=== PATIENT | male | born 1985 | race Caucasian/White ===

== ENCOUNTER 2017-04-09 23:19 | Emergency (ER) | payer BC ==
[~2017-04-09] VITALS: Ht 180.3 cm; Wt 70.0 kg
[2017-04-10] MEDS ORDERED: SODIUM CHLORIDE 0.9% 1,000 ML IV ONE (00:51)
[2017-04-10 01:26] LABS: CHLORIDE 104 mEq/L (98-107)
[2017-04-10 01:29] LABS: BASOPHILS % 0.6 % (0.0-2.0); EOSINOPHILS % 2.3 % (0.0-5.0); HEMATOCRIT. 41.8 % (42.0-52.0); HEMOGLOBIN. 14.3 g/dL (14.0-18.0); LYMPHOCYTES % 30.2 % (20.0-50.0); MEAN CORPUSCULAR HEMOGLOBIN 31.1 pg (28.0-32.0); MEAN CORPUSCULAR VOLUME 90.8 fL (80.0-94.0); MEAN PLATELET VOLUME 8.4 fl (7.4-10.4); MONOCYTES % 9.9 % (2.0-8.0); PLATELET 212 x1000/uL (130-400); RED BLOOD CELL COUNT 4.61 mill/uL (4.7-6.1); RED CELL DISTRIBUTION WIDTH 13.2 % (11.6-14.6)
[2017-04-10 01:35] LABS: CARBON DIOXIDE 32 mEq/L (21-32)
[2017-04-10 04:30] LABS: CLARITY URINE CLEAR (CLEAR); COLOR URINE YELLOW (YELLOW); GLUCOSE URINE NEGATIVE (NEGATIVE); KETONES URINE TRACE (NEGATIVE); LEUKOCYTE ESTERASE URINE NEGATIVE (NEGATIVE); NITRITE URINE NEGATIVE (NEGATIVE); OCCULT BLOOD URINE NEGATIVE (NEGATIVE); PH URINE 5.5 (4.5-8.0); PROTEIN URINE NEGATIVE (NEGATIVE); SPECIFIC GRAVITY URINE 1.022 (1.005-1.030); UROBILINOGEN URINE 0.2 E.U./dL (0.2-1.0)
[2017-04-10 07:52] VITALS: BP 110/70
== END 2017-04-10 08:16 | disposition home or self-care (01) ==
LOC: ER 23:34
DX: S20.221A Contusion of right back wall of thorax, initial encounter (principal); R26.9 Unspecified abnormalities of gait and mobility; V03.90XA Pedestrian on foot injured in collision with car, pick-up truck or van, unspecified whether traffic or nontraffic accident, initial encounter; Y93.89 Activity, other specified; Y92.89 Other specified places as the place of occurrence of the external cause; Y99.8 Other external cause status
CPT/HCPCS: 36415; 71101; 80053; 81003; 85025; 96360; 96361; 99285; J7030; Z7610

== ENCOUNTER 2019-03-31 06:00 | Emergency (ER) | payer BC ==
[~2019-03-31] VITALS: Ht 182.9 cm; Wt 80.0 kg
[2019-03-31] MEDS ORDERED: SODIUM CHLORIDE 0.9% 1,000 ML IV ONE (06:18)
[2019-03-31] MEDS ORDERED: LORAZEPAM 2MG/ML CPJ IV ONE (06:30)
[2019-03-31] MEDS ORDERED: LEVETIRACETAM 500MG PREMIX 100 ML IV ONE (06:30)
[2019-03-31 08:36] LABS: HEMATOCRIT. 38.6 % (42.0-52.0); MEAN CORPUSCULAR HEMOGLOBIN 31.2 pg (28.0-32.0); MEAN PLATELET VOLUME 8.4 fl (7.4-10.4); PLATELET 199 x1000/uL (130-400); RED BLOOD CELL COUNT 4.16 mill/uL (4.7-6.1); RED CELL DISTRIBUTION WIDTH 13.3 % (11.6-14.6)
[2019-03-31 08:59] LABS: CHLORIDE 112 mEq/L (98-107); PLATELET ESTIMATE NORMAL
[2019-03-31 09:02] LABS: ETHANOL BLOOD < 10 mg/dL
[2019-03-31 10:49] VITALS: BP 127/82
== END 2019-03-31 10:55 | disposition home or self-care (01) ==
LOC: ER 06:00
DX: G40.909 Epilepsy, unspecified, not intractable, without status epilepticus (principal); R41.82 Altered mental status, unspecified; Z98.890 Other specified postprocedural states
CPT/HCPCS: 36415; 70450; 80053; 80320; 85025; 93005; 96365; 96375; 99284; J1953; J2060; J7030; Z7610; G0480